=== PATIENT | male | born 1965 | race African-American/Black ===

== ENCOUNTER 2018-12-09 10:51 | Emergency (ER) | payer MEDICAID ==
[2018-12-09 11:05] VITALS: BP 125/70
--- NOTE | 2018-12-09 11:05 | NUR ---
ED Nurse Note: PT BROUGHT IN BY AMBULANCE FROM STREET DUE TO RIGHT SIDE CP WHICH STARTED THIS MORNING AFTER TAKING PCP. PT ALSO ADMITS ON TAKING ALCOHOL AND MARIJUANA. PT WAS JUST DC FROM [facility] THIS MORNING. AAO X4, AMBULATORY WITH NON LABORED BREATHING. 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
--- NOTE | 2018-12-09 11:33 | Emergency Room Report ---
History of Present Illness General Chief Complaint: Chest Pain Source: Patient, EMS Present Illness HPI Disclaimer: Please note that this report is being documented using DRAGON technology. This can lead to erroneous entry secondary to incorrect interpretation by the dictating instrument. HPI: This is a 53-year-old male with history of polysubstance abuse presenting for chest pain. Patient states he is experiencing some right-sided sharp stabbing chest pain made worse by deep inspiration over the past 30 minutes to 1 hour. Patient reports drinking alcohol as he does every day, smoking marijuana and smoking PCP prior to chest pain onset. He denies shortness of breath, abdominal pain, vomiting. Chest pain does not radiate. Denies headache , lightheadedness, palpitations or loss of consciousness. States he has had similar chest pain with prior substance abuse and has been known to use methamphetamines, cocaine and PCP regularly. He was recently discharged from [facility]. PMH: Polysubstance abuse PSH: Denies Allergies: Denies Social Hx: PCP use, THC use, regular alcohol use, cocaine use, methamphetamine use Allergies: Coded Allergies: No Known Allergies (Unverified , 12/09/18) Review of Systems All Other Systems: negative except mentioned in HPI Physical Exam Vital Signs Date Time Temp Pulse Resp B/P (MAP) Pulse Ox O2 Delivery O2 Flow Rate FiO2 12/09/18 11:00 80 16 12/09/18 11:05 125/70 100 General: Awake and alert, no acute distress HEENT: NC/AT. EOMI. dry mucous membranes Chest Wall: No tenderness, no deformity Cardiovascular: RRR. S1 and S2 normal. No murmur appreciated Resp: Normal work of breathing. No cough, wheezing or crackles appreciated Abdomen: Abdomen is soft, nondistended. Nontender Skin: Intact. No abrasions, laceration or rash over the exposed skin MSK: Normal tone and bulk. Moving all extremities. No obvious deformity. No unilateral calf pain or swelling Neuro: Awake and alert. Mentating appropriately. Medical Decision Making Diagnostic Impression: Primary Impression: PCP (phencyclidine) abuse Additional Impressions: Chest pain Alcohol abuse ER Course 53-year-old male with history of polysubstance abuse and recent cocaine, THC and alcohol use presents for evaluation of right-sided sharp chest pain. Symptoms are present 30 minutes to 1 hour and appear to be improving. Patient arrives with stable vital signs, no tachycardia, no tremors and no evidence of acute withdrawal symptoms. His EKG obtained at triage shows sinus rhythm without ischemic changes. Will obtain cardiac labs and a chest x-ray to rule out ACS, myocarditis or pericarditis however at this time it appears that polysubstance use is likely the cause of his chest pain. Laboratory Tests Test 12/09/18 11:35 White Blood Count 9.6 K/UL (4.8-10.8) Red Blood Count 5.11 M/UL (4.70-6.10) Hemoglobin 15.1 G/DL (14.2-18.0) Hematocrit 47.2 % (42.0-52.0) Mean Corpuscular Volume 92 FL (80-99) Mean Corpuscular Hemoglobin 29.6 PG (27.0-31.0) Mean Corpuscular Hemoglobin Concent 32.1 G/DL (32.0-36.0) Red Cell Distribution Width 11.7 % (11.6-14.8) Platelet Count 249 K/UL (150-450) Mean Platelet Volume 6.3 FL (6.5-10.1) L Neutrophils (%) (Auto) 79.4 % (45.0-75.0) H Lymphocytes (%) (Auto) 13.4 % (20.0-45.0) L Monocytes (%) (Auto) 5.8 % (1.0-10.0) Eosinophils (%) (Auto) 0.3 % (0.0-3.0) Basophils (%) (Auto) 1.0 % (0.0-2.0) Sodium Level 144 MMOL/L (136-145) Potassium Level 3.5 MMOL/L (3.5-5.1) Chloride Level 105 MMOL/L (98-107) Carbon Dioxide Level 27 MMOL/L (21-32) Anion Gap 12 mmol/L (5-15) Blood Urea Nitrogen 5 mg/dL (7-18) L Creatinine 0.7 MG/DL (0.55-1.30) Estimate Glomerular Filtration Rate > 60 mL/min (>60) Glucose Level 84 MG/DL (74-106) Calcium Level 9.3 MG/DL (8.5-10.1) Total Bilirubin 0.5 MG/DL (0.2-1.0) Aspartate Amino Transferase (AST) 38 U/L (15-37) H Alanine Aminotransferase (ALT) 38 U/L (12-78) Alkaline Phosphatase 91 U/L (46-116) Troponin I 0.000 ng/mL (0.000-0.056) Total Protein 8.7 G/DL (6.4-8.2) H Albumin 4.2 G/DL (3.4-5.0) Globulin 4.5 g/dL Albumin/Globulin Ratio 0.9 (1.0-2.7) L EKG Diagnostic Results EKG Time: 11:02 Rate: normal Rhythm: NSR ST Segments: no acute changes Other Impression Sinus rhythm, normal axis, normal intervals, no ST segment changes. Rhythm Strip Diag. Results Rhythm Strip Time: 11:02 EP Interpretation: yes Rate: 0s Rhythm: NSR, no PVC's, no ectopy Reevaluation Time: 12:27 Last Vital Signs Date Time Temp Pulse Resp B/P (MAP) Pulse Ox O2 Delivery O2 Flow Rate FiO2 12/09/18 11:05 80 16 125/70 100 Reevaluation Impression Labs have returned within normal limits. Troponin is negative. The patient was feeling much better and requested discharge home. The chest x-ray was not performed as patient refused. I provided resources for drug and alcohol abuse in his discharge paperwork for which she can follow-up as outpatient. He has no clinical signs of acute withdrawal at this time and vital signs are within normal limits. He is safe for outpatient follow-up. Discussed reasons to return to the emergency department. Patient understands and agrees with the treatment plan. Disposition: HOME, SELF-CARE Condition: Stable Hector De MD Dec 09, 2018 11:33
[2018-12-09 11:58] LABS: ANION GAP 12 mmol/L (5-15); BLOOD UREA NITROGEN 5 mg/dL (7-18); CALCIUM 9.3 MG/DL (8.5-10.1); CARBON DIOXIDE 27 MMOL/L (21-32); CHLORIDE 105 MMOL/L (98-107); CREATININE 0.7 MG/DL (0.55-1.30); POTASSIUM 3.5 MMOL/L (3.5-5.1); SODIUM 144 MMOL/L (136-145)
[2018-12-09 12:00] LABS: EOSINOPHILS % (AUTO) 0.3 % (0.0-3.0); HEMATOCRIT 47.2 % (42.0-52.0); HEMOGLOBIN 15.1 G/DL (14.2-18.0); LYMPHOCYTES % (AUTO) 13.4 % (20.0-45.0); MEAN CORPUSCULAR VOLUME 92 FL (80-99); MONOCYTES % (AUTO) 5.8 % (1.0-10.0); NEUTROPHILS % (AUTO) 79.4 % (45.0-75.0); PLATELET COUNT 249 K/UL (150-450); RED BLOOD COUNT 5.11 M/UL (4.70-6.10); RED CELL DISTRIBUTION WIDTH 11.7 % (11.6-14.8); WHITE BLOOD COUNT 9.6 K/UL (4.8-10.8)
[2018-12-09 12:03] LABS: ALANINE AMINOTRANSFERASE 38 U/L (12-78); ALBUMIN 4.2 G/DL (3.4-5.0); ALBUMIN/GLOBULIN RATIO 0.9 (1.0-2.7); ALKALINE PHOSPHATASE 91 U/L (46-116); ASPARTATE AMINO TRANSFERASE 38 U/L (15-37); BILIRUBIN,TOTAL 0.5 MG/DL (0.2-1.0)
--- NOTE | 2018-12-09 12:20 | NUR ---
ED Nurse Note: CALLED RADIOLOGY TO FF UP WITH CXR.
--- NOTE | 2018-12-09 12:25 | NUR ---
ED Nurse Note: SANDWICH/JUICE PROVIDED TO PT. DAXA OKAY FOR PT TO EAT.
[2018-12-09 12:35] VITALS: BP 132/79
--- NOTE | 2018-12-09 12:35 | NUR ---
ER DISCHARGE NOTE: Patient is cleared to be discharged per ERMD, pt is aox4, on room air, with stable vital signs. pt refused to sign homeless DC papers and refused to get his DC papers. pt id band and iv site removed without complications. pt is able to ambulate with steady gait. pt took all belongings.
== END 2018-12-09 13:00 | disposition home or self-care (01) ==
LOC: EDBD 10:51 → EMR 13:00
DX: R07.9 Chest pain, unspecified (principal); F16.10 Hallucinogen abuse, uncomplicated; F10.10 Alcohol abuse, uncomplicated
CPT/HCPCS: 36415; 80053; 84484; 85025; 93005; Z7502; 99284